=== PATIENT | female | born 1985 | race American Indian/Alaskan Native ===

== ENCOUNTER 2017-03-24 20:48 | Outpatient (CLI) | payer MEDICAID ==
[2017-03-24 21:01] VITALS: BP 111/63
[2017-03-24] MEDS ORDERED: LACTATED RINGERS 0 ML ONE (21:12)
== END 2017-03-24 22:20 | disposition home or self-care (01) ==
LOC: TRG 20:48
PROVIDERS: ATTEND Obstetrics & Gynecology
DX: O26.893 Other specified pregnancy related conditions, third trimester (principal); M54.5 Low back pain; R07.9 Chest pain, unspecified; O62.9 Abnormality of forces of labor, unspecified; Z3A.38 38 weeks gestation of pregnancy
CPT/HCPCS: 59025; J7120

== ENCOUNTER 2018-07-09 09:01 | Emergency (ER) | payer MEDICAID, OTHER ==
[2018-07-09 09:57] LABS: Bacteria,Urine 1+ /HPF (Negative); Bilirubin,Urine NEG (Negative); Blood,Urine MOD (Negative); Color,Urine Yellow (Yellow); Mucus,Urine FEW /HPF
[2018-07-09 09:58] LABS: HCG Qualitative,Urine Negative (Negative); WBC,Urine > 182.0 /HPF (0.0-6.0)
--- NOTE | 2018-07-09 10:46 | Emergency Department Report ---
ED Abdominal Pain HPI - General Chief Complaint: Abdominal Pain Stated Complaint: STOMACH PAIN Time Seen by Provider: 07/09/18 10:23 Source: patient Mode of arrival: Ambulatory Limitations: No Limitations - History of Present Illness Initial Comments: This is a 32-year-old -Prydeinig female who presents with lower abdominal pain and dysuria for 3-4 days. Patient states pain is sharp and lasts for 10- 15 minutes to suprapubic region and left flank. Patient states she has history of urinary tract infections but this feels a lot different. She reports pain is radiating from her lower abdominal region to left flank. She also states she is having some frequency and urgency. Patient denies nausea or vomiting, hematuria, fever, chest pain, vaginal bleeding or discharge, or recent exposure to STD. MD Complaint: abdominal pain Onset/Timin -: days(s) Location: suprapubic Radiation: L flank Migration to: no migration Severity: moderate Severity scale (0 -10): 7 Quality: stabbing, sharp Consistency: intermittent Improves With: nothing Worsens With: other (urination) Associated Symptoms: dysuria - Related Data Home Medications Medication Instructions Recorded Confirmed Last Taken Vits96/Iron Fum/Folic 1 tab PO DAILY 07/03/14 03/24/17 03/24/17 10:00 [ Tablet] Previous Rx's Medication Instructions Recorded Last Taken Type Phenazopyridine [Pyridium] 200 mg PO TID #6 tab 07/09/18 Unknown Rx Sulfamethoxazole/Trimethoprim 1 each PO BID #6 tablet 07/09/18 Unknown Rx [Bactrim DS TAB] Allergies Allergy/AdvReac Type Severity Reaction Status Date / Time No Known Allergies Allergy Verified 03/24/17 21:16 ED Review of Systems ROS: Stated complaint: STOMACH PAIN Other details as noted in HPI Constitutional: denies: chills, fever Respiratory: denies: cough, shortness of breath, wheezing Cardiovascular: denies: chest pain, palpitations Gastrointestinal: abdominal pain. denies: nausea, diarrhea Genitourinary: urgency, dysuria, frequency. denies: hematuria, discharge, abnormal menses, dyspareunia Musculoskeletal: denies: back pain, joint swelling, arthralgia Neurological: denies: headache, weakness, paresthesias Psychiatric: denies: anxiety, depression ED Past Medical Hx - Past Medical History Previous Medical History?: Yes Hx Hypertension: No Hx Diabetes: No Hx Deep Vein Thrombosis: No Hx Renal Disease: No Hx Sickle Cell Disease: (sickle cell trait) Hx Seizures: No Hx Asthma: No Hx HIV: No - Surgical History Past Surgical History?: Yes Additional Surgical History: x 1. tubal ligation - Social History Smoking Status: Current Every Day Smoker Substance Use Type: None - Medications Home Medications: Home Medications Medication Instructions Recorded Confirmed Last Taken Type Vits96/Iron Fum/Folic 1 tab PO DAILY 07/03/14 03/24/17 03/24/17 10:00 History [ Tablet] Phenazopyridine [Pyridium] 200 mg PO TID #6 tab 07/09/18 Unknown Rx Sulfamethoxazole/Trimethoprim 1 each PO BID #6 tablet 07/09/18 Unknown Rx [Bactrim DS TAB] ED Physical Exam - General Limitations: No Limitations General appearance: alert, in no apparent distress, obese - Respiratory Respiratory exam: Present: normal lung sounds bilaterally. Absent: respiratory distress - Cardiovascular Cardiovascular Exam: Present: regular rate, normal rhythm. Absent: systolic murmur, diastolic murmur, rubs, gallop - GI/Abdominal GI/Abdominal exam: Present: soft, tenderness (suprapubic and LLQ), normal bowel sounds. Absent: organomegaly, mass - Back Exam Back exam: Present: CVA tenderness (L). Absent: normal inspection, CVA tenderness (R), rash noted - Neurological Exam Neurological exam: Present: alert, oriented X3 - Psychiatric Psychiatric exam: Present: normal affect, normal mood - Skin Skin exam: Present: warm, dry, intact, normal color. Absent: rash ED Course Vital Signs 07/09/18 09:05 Temperature 99.3 F Pulse Rate 88 Respiratory 17 Rate Blood Pressure 119/70 O2 Sat by Pulse 100 Oximetry ED Medical Decision Making - Radiology Data Radiology results: report reviewed, image reviewed ULTRASOUND RENAL BILATERAL HISTORY: Left lower quadrant pain, rule out stones. TECHNIQUE: transabdominal ultrasound with color Doppler interrogation. COMPARISON: none. FINDINGS: The kidneys are normal size, contour and position. There is increased renal parenchymal echotexture bilaterally. Corticomedullary differentiation is preserved. No evidence for cystic disease, mass, nephrolithiasis, hydronephrosis or perinephric fluid. The views of the bladder and the region of the ureters appear normal. An incidental finding of numerous gallstones within the gallbladder is noted. IMPRESSION: The kidneys are slightly echogenic consistent with nonspecific renal parenchymal disease. Cholelithiasis. - Medical Decision Making Patient is stable and was examined by me in fast track. Vitals normal. Obtained UA, urine hCG, and renal ultrasound. Urine hCG negative, moderate blood and elevated WBC's in UA. The kidneys are slightly echogenic consistent with nonspecific renal parenchymal disease. Cholelithiasis. Start bactrim and Pyridium for acute cystitis. Referral to general surgery for continuance of care for Cholelithiasis. Discussed plan with patient and agreed to plan. Discharged home in stable condition. Follow up with PCP in 2-3 days. Critical care attestation.: If time is entered above; I have spent that time in minutes in the direct care of this critically ill patient, excluding procedure time. ED Disposition Clinical Impression: Dysuria, Left flank pain Cholelithiasis Qualifiers: Cholelithiasis location: gallbladder Cholecystitis presence: without cholecystitis Biliary obstruction: with biliary obstruction Qualified Code(s): K80.21 - Calculus of gallbladder without cholecystitis with obstruction Acute cystitis Qualifiers: Hematuria presence: with hematuria Qualified Code(s): N30.01 - Acute cystitis with hematuria Abdominal pain Qualifiers: Abdominal location: generalized Qualified Code(s): R10.84 - Generalized abdominal pain Disposition: - TO HOME OR SELFCARE Is pt being admited?: No Does the pt Need Aspirin: No Condition: Stable Instructions: Low Fat Diet (ED), Urinary Tract Infection in Women (ED), Biliary Colic (ED) Additional Instructions: Increase fluid intake to 2 L per day. Change diet to low-protein and a low-sodium diet. Follow-up with primary care doctor in 2-3 days. Follow-up with general surgery for further management of gallstones. Prescriptions: Phenazopyridine [Pyridium] 200 mg PO TID #6 tab Sulfamethoxazole/Trimethoprim [Bactrim DS TAB] 1 each PO BID #6 tablet Referrals: [facility] [Outside] - 3-5 Days [facility] [Outside] - 3-[address] [facility] [Outside] - 3-5 Days Forms: Work/School Release Form(ED) Time of Disposition: 12:48 Print Language: SETSWANA
--- NOTE | 2018-07-09 11:10 | Ultrasound Report ---
ULTRASOUND RENAL BILATERAL HISTORY: Left lower quadrant pain, rule out stones. TECHNIQUE: transabdominal ultrasound with color Doppler interrogation. COMPARISON: none. FINDINGS: The kidneys are normal size, contour and position. There is increased renal parenchymal echotexture bilaterally. Corticomedullary differentiation is preserved. No evidence for cystic disease, mass, nephrolithiasis, hydronephrosis or perinephric fluid. The views of the bladder and the region of the ureters appear normal. An incidental finding of numerous gallstones within the gallbladder is noted. IMPRESSION: The kidneys are slightly echogenic consistent with nonspecific renal parenchymal disease. Cholelithiasis.
[2018-07-09 13:01] VITALS: BP 120/82
== END 2018-07-09 13:01 | disposition home or self-care (01) ==
LOC: ED 09:01
DX: K80.21 Calculus of gallbladder without cholecystitis with obstruction (principal); N30.01 Acute cystitis with hematuria; F17.200 Nicotine dependence, unspecified, uncomplicated; Z98.51 Tubal ligation status; Z79.899 Other long term (current) drug therapy
CPT/HCPCS: 76770; 81001; 81025